=== PATIENT | female | born 1975 ===

== ENCOUNTER 2016-08-13 21:16 | Inpatient (IN) | payer OTHER ==
[2016-08-13] MEDS ORDERED: IOPAMIDOL 370 (76%) 100 ML VIAL IV ONE (21:17)
[2016-08-13] MEDS ORDERED: LACTATED RINGERS 1,000 ML ONE (22:05)
[2016-08-13] MEDS ORDERED: ONDANSETRON 4 MG/2ML 2 ML VIAL ONE (22:05)
[2016-08-13] MEDS ORDERED: HYDROMORPHONE HCL 1 MG/ML SYRINGE ONE ×2 (22:06→23:04)
[2016-08-13 22:29] LABS: ABSOLUTE NEUTROPHIL COUNT 7.3 K/mm3 (1.8-7.7); BASO % 0.4 % (0.2-1.0); HEMATOCRIT 38.7 % (37.0-47.0); HEMOGLOBIN 12.8 gm/l (12.0-16.0); IMM NEUT% 0.2 % (0-1); LYMPH # 1.7 (1.0-4.8); LYMPH % 17.3 % (15-45); MEAN CELL VOLUME 82.7 fl (81.0-99.0); MEAN CORPUSCULAR HEMOGLOBIN 27.4 pg (27.0-31.0); MEAN CORPUSCULAR HGB CONC 33.1 g/dl (33.0-37.0); MEAN PLATELET VOLUME 11.7 fl (7.4-10.4); MONO # 0.7 (0.0-0.8); MONO % 6.8 % (4-12); NEUT % 75.3 % (43-75); PLATELET COUNT 217 K/mm3 (130-400); RED CELL DISTRIBUTION WIDTH 13.8 % (11.5-14.5)
[2016-08-13 22:51] LABS: ALB/GLOB RATIO 1.2 (>1.0); ALBUMIN 4.2 gm/dL (3.5-5.7); CALCIUM 9.9 mg/dL (8.6-10.3)
[2016-08-14] MEDS ORDERED: ROCURONIUM BROMIDE 10 MG/ML DOSE IV ONE ×10 (01:27)
[2016-08-14] MEDS ORDERED: LIDOCAINE 2% (MULTI DOSE) 10 ML VIAL ONE (01:27)
[2016-08-14] MEDS ORDERED: PROPOFOL 20 ML IV ONE (01:28)
--- NOTE | 2016-08-14 01:28 | PDOC36 ---
Provider Note Note: GENERAL SURGERY H&P CC: abdominal pain HPI: 44yo F with abdominal pain. This started earlier today. It is constant but intermittently worsens. It is worse on her right side. She has had pain similar to this over the last several years, but never with this intensity. She has never had a colonoscopy. She has had some associated nausea/vomiting and subjective fevers, but denies any recent C/CP/SOB, change in bladder fx, constipation, diarrhea, unintentional weight loss, easy bleeding/bruising, or other associated symptoms. REVIEW OF SYSTEMS CONSTITUTIONAL: As per HPI. EARS, NOSE, MOUTH, THROAT: ~No sneezing or runny nose CARDIOVASCULAR: ~As per HPI. RESPIRATORY: ~As per HPI. GASTROINTESTINAL: ~As per HPI. GENITOURINARY: ~As per HPI. NEUROLOGICAL: ~No history of seizures HEMATOLOGIC: ~As per HPI. MUSCULOSKELETAL: ~No change in strength. LYMPHATICS: ~No history of splenectomy. PSYCHIATRIC: ~No change in personality or affect PMH: None PSH: x 3 Meds: None All: PCN SH: Denies tobacco and EtOH FH: No FH of cancers Physical Exam: General/Constitutional: In mild distress due to pain. Psych: A&O x 3, normal judgment and insight. Recent and remote memory intact. Mood and affect normal. Eyes: Pupils equal, no scleral icterus Ears, Nose, Mouth, Throat: gross hearing intact Neck: Supple Heart: RRR, no LE edema Lungs: Equal rise and fall of chest wall, non-labored breathing, no audible wheezes Neuro: Gross sensation intact Abdomen: Soft, ND, mild RIGHT sided abdominal pain, no guarding. Labs: Laboratory Results - last 24 hr 08/13/16 22:25 WBC 9.6 RBC 4.68 Hgb 12.8 Hct 38.7 MCV 82.7 MCH 27.4 MCHC 33.1 RDW 13.8 Plt Count 217 Neut % (Auto) 75.3 H Lymph % (Auto) 17.3 [place] % (Auto) 6.8 Baso % (Auto) 0.4 Absolute Neuts (auto) 7.3 Eosinophils % 0.0 L Sodium 139 Potassium 3.7 Chloride 106 Carbon Dioxide 20 L Anion Gap 17 H BUN 7 Creatinine 0.6 Estimated GFR 111 H BUN/Creatinine Ratio 12 Glucose 106 H Calcium 9.9 Total Bilirubin 1.3 H AST 18 ALT 12 Alkaline Phosphatase 55 Total Protein 7.7 Albumin 4.2 Globulin 3.5 Albumin/Globulin Ratio 1.2 Lipase 11 Beta HCG, Qual Negative % Immature Granulocyt 0.2 CT A/P (08/13/16): Pre-eckert read - abnormal loops of small bowel within the right abdomen demonstrating wall thickening, abnormal C-shaped configuration ad twisting of the mesentery, compatible with an internal hernia. Most of these bowel loops are decompressed, with the exception of a short segment at the inferior margin, which may reflect early closed loop obstruction. Of note, the duodenum does not cross the midline, suggesting developmental malrotation. The cecum is at the right lower quadrant. Small amount of free fluid. No free air, pneumotosis, or portal venous gas. Cholelithiasis without cholecystitis. 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 I recommend surgical exploration. The operation and expected post-operative course were discussed at length. We discussed the risks of the operation to include, but not limited to: bleeding, pain, infection, scar, damage to surrounding structures (small bowel, colon, bladder), failure to improve health, need for additional procedures (to include conversion to open and bowel resection), and the risks of anesthesia (heart attack, arrhythmia, stroke, blood clot, and ). The patient understands these risks and agrees to proceed with surgery. Will plan for diagnostic laparoscopy, possible exploratory laparotomy, and possible bowel resection now. Type and screen sent. Jose A Brewer MD General Surgeon
[2016-08-14] MEDS ORDERED: MIDAZOLAM HCL 1 MG/ML 2ML VIAL ONE (01:31)
[2016-08-14] MEDS ORDERED: FENTANYL 250 MCG/5 ML AMP ONE (01:31)
[2016-08-14] MEDS ORDERED: LACTATED RINGERS 1,000 ML ONE ×2 (01:36→04:09)
[2016-08-14] MEDS ORDERED: LIDOCAINE 1% (PRES FREE) 30 ML VIAL ONE (01:46)
[2016-08-14] MEDS ORDERED: BUPIVACAINE 0.5% (PRES FREE) 30 ML VIAL ONE (01:46)
[2016-08-14] MEDS ORDERED: CLINDAMYCIN PHOSPHATE 600 MG/4 ML VIAL ONE (01:55)
[2016-08-14] MEDS ORDERED: SODIUM CHLORIDE 0.9% 50 ML IV ONE (01:55)
[2016-08-14] MEDS ORDERED: CLINDAMYCIN 900 MG PREMIX 50 ML IV ONE (01:56)
[2016-08-14] MEDS ORDERED: ONDANSETRON 4 MG/2ML 2 ML VIAL ONE (03:20)
[2016-08-14] MEDS ORDERED: KETOROLAC TROMETHAMINE 30 MG/ML 1 ML VIAL ONE (03:21)
--- NOTE | 2016-08-14 03:53 | PCMON ---
OPERATIVE REPORT Pre-Op Diagnosis: Internal hernia Post-Op Diagnosis: Internal hernia Operation: Laparoscopic converted to open lysis of adhesions and internal hernia repair Surgeon: Maged Brewer MD Plunger Machine Operator: Linda Cheng Anesthesia: GETA Pre-Operative Antibiotics: Clindamycin 900mg Specimen Sent to Lab: None Date of Operation: 14 August 2016 Infection Classification: 1 Estimated Blood Loss: 10mL Indication for Procedure: The patient is a 44 year old female with one day of abdominal pain. CT scan demonstrates a dilated loop of bowel incarcerated within an internal hernia, and a possible congenital malrotation. Description of Findings: There were mild to moderate adhesions from the patient s prior C-sections. All bowel appeared viable. There was minimal chylous ascites present from lymphatic congestion. There were fibrous bands at the root of the duodenal mesentery creating a mesenteric defect and internal hernia. The bowel was completely reduced and the hernia was repaired. Detailed Operative Report: The patient was met in the pre-operative holding area by the operating team. All questions and concerns were addressed appropriately. The patient was taken to the operating room where general anesthesia was induced. A Downs catheter was placed. The abdomen was prepped and draped in the normal sterile fashion. ~ Local anesthetic was injected into the proposed supra-umbilical incision site. The skin was incised. The fascia was elevated and incised. Direct entry into the peritoneum was confirmed. A 12mm~balloon trocar was inserted into the abdomen. The abdomen was insufflated to a pressure of 15mm Hg, which the patient tolerated well. The laparoscope was inserted and the abdomen was inspected. There were no injuries from initial trocar placement. Two additional 5mm trocars were placed in the left lower quadrant and left upper quadrant positions. ~ There were moderate omental adhesions in the pelvis and right lower quadrant from the patients prior operations that were lysed with the Ligasure device. The colon was identified and appeared to be in appropriate anatomic position. The cecum was identified via the appendix and the small bowel was run from distal to proximal. All bowel appeared healthy and viable. There was some lymphatic congestion in an approximately 20cm segment of bowel with associated scant chylous ascites. There appeared to be a defect at the root of the duodenal mesentary that was poorly visualized laparoscopically. We converted to an open procedure. All trocars were removed. The midline incision was extended to an approximately 8cm midline incision. An Curt wound protector was placed. The small bowel was eviscerated. There were fibrous bands at the root of the duodenal mesentary with an associated mesenteric defect. These bands were dissected and lysed with electrocautery. We ensured that the entirety of the small bowel was reduced from the defect. The defect, measuring approximately 5-6cm was closed with several interrupted 3-0 silk sutures. The abdomen was thoroughly irrigated and hemostasis was ensured. The fascia was closed with running 0-looped PDS. All skin was closed with 4-0 monocryl. The midline incision was dressed with an Aquacel Ag dressing. The laparoscopic port sites were dressed with mastisol, steri-strips, and band-aids. The Downs catheter was removed. The patient was then awakened from anesthesia, extubated, and transferred to the PACU without complication. Prior to closing, all sponge and instrument counts were correct.~~Dr. Brewer was present for the entire procedure. MAGED BREWER MD
[2016-08-14] MEDS ORDERED: HYDROMORPHONE HCL 1 MG/ML SYRINGE IV PRN (04:28)
[2016-08-14] MEDS ORDERED: NALOXONE HCL 0.4 MG/ML VIAL IV PRN (04:28)
[2016-08-14] MEDS ORDERED: MORPHINE SULFATE 2 MG/ML SYRINGE IV PRN (04:28)
[2016-08-14] MEDS ORDERED: MEPERIDINE 25 MG/ML SYRINGE IV PRN (04:28)
[2016-08-14] MEDS ORDERED: PROMETHAZINE HCL 25 MG/ML VIAL IM PRN (04:28)
[2016-08-14] MEDS ORDERED: ATROPINE SULFATE 0.4 MG/1 ML VIAL IV PRN (04:28)
[2016-08-14] MEDS ORDERED: LACTATED RINGERS 1,000 ML IV SCH (04:28)
[2016-08-14] MEDS ORDERED: ONDANSETRON 4 MG/2ML 2 ML VIAL IV PRN ×2 (04:28)
[2016-08-14] MEDS ORDERED: FENTANYL 100 MCG/2 ML VIAL IV PRN (04:28)
[2016-08-14] MEDS ORDERED: LABETALOL HCL 5 MG/ML 20ML VIAL IV PRN (04:28)
[2016-08-14] MEDS ORDERED: CLINDAMYCIN 900 MG PREMIX 900 MG in Premix (D5W) 50 ml 1 EACH IV PRN (04:28)
[2016-08-14] MEDS ORDERED: HYDRALAZINE HCL 20 MG/1 ML VIAL IV PRN (04:28)
[2016-08-14 06:03] VITALS: BMI 26.4
[2016-08-14] MEDS ORDERED: PUMP TUBING ONE (06:25)
[2016-08-14] MEDS: LACTATED RINGERS 1,000 ML IV SCH ×3 (06:29→20:01)
--- NOTE | 2016-08-14 08:26 | CT ---
Exam: CT abdomen and pelvis with contrast COMPARISON: 03/20/2014 INDICATION: Right-sided abdominal pain. TECHNIQUE: CT examination of the abdomen and pelvis was obtained following the administration 100 mL Isovue-370 intravenous contrast. FINDINGS: There is an abnormal collection of collapsed small bowel bowel within the right upper quadrant which is highly concerning for an internal hernia. 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 There is some fecalization of small bowel contents within this short segment of bowel as annotated on coronal image 26 of 63 where there is abrupt transition to narrow small bowel reflecting stasis/obstruction. There is no pneumatosis or portal venous gas. Stool and gas is present within the colon although the ileum is essentially collapsed. There is a small amount of free fluid in the pelvis, within physiologic range. There is no free intraperitoneal air. Cholelithiasis. The pancreas is within normal limits. No biliary ductal dilation. Liver is unremarkable. Spleen is normal in size. There is no adrenal mass. Other than some scarring in the upper pole the left kidney, kidneys are unremarkable. Lung bases are clear. Lumbosacral transitional vertebra is incidentally noted. No worrisome osseous abnormality is identified. IMPRESSION: 1. Abnormal collection of collapsed small bowel within the right upper quadrant which is highly concerning for an internal hernia. Surgical consultation is recommended. 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 2. Cholelithiasis without evidence of cholecystitis or biliary ductal dilation. Preliminary report transmitted to the emergency department from [facility] at 0045 hours 08/14/2016.
--- NOTE | 2016-08-14 08:28 | US ---
Exam: Gallbladder ultrasound COMPARISON: CT 03/20/2014 INDICATION: Right upper quadrant pain. FINDINGS: Gallbladder ultrasound was obtained. Gallbladder is moderately distended. There is no gallbladder wall thickening or pericholecystic fluid. No gallstones are identified; tiny calcified gallstones seen on the prior CT were not visualized. There was a negative sonographic Caldera sign. Common bile duct normal at 3 mm. IMPRESSION: Negative gallbladder ultrasound. Tiny gallstones seen on the 2014 CT were not visualized. Preliminary report transmitted to the emergency department from [facility] at 2306 hours 08/13/2016.
[2016-08-14] MEDS ORDERED: SODIUM CHLORIDE 0.9% FLUSH 10 ML ONE (11:14)
[2016-08-14] MEDS: OXYCODONE/ACETAMINOPHEN 5/325 MG TABLET PO PRN (15:42)
[2016-08-15] MEDS: OXYCODONE/ACETAMINOPHEN 5/325 MG TABLET PO PRN (04:41)
[2016-08-15] MEDS: LACTATED RINGERS 1,000 ML IV SCH (07:19)
[2016-08-15 08:45] VITALS: BP 97/64
--- NOTE | 2016-08-15 10:12 | PDOC43 ---
- Subjective S: Minimal pain. Tolerated clear liquids. Ambulating. No flatus or BM yet. O: VSS, adequate UOP Physical Exam: General/Constitutional: Vitals documented above, comfortable in NAD Psych: A&O x 3, normal judgment and insight. Recent and remote memory intact. Mood and affect normal. Eyes: Pupils equal, no scleral icterus Ears, Nose, Mouth, Throat: gross hearing intact Neck: Supple Heart: RRR, no LE edema Lungs: Equal rise and fall of chest wall, non-labored breathing, no audible wheezes Neuro: Gross sensation intact Abdomen: Soft, NT/ND, no guarding. Midline incision with minimal strikethrough. Laparoscopic incisions covered with steris/band-aids that are c/d/i. A/P: 44yo F doing well POD#1 s/p laparoscopic converted to open lysis of adhesions and repair of internal hernia. Will advance to regular diet and HLIV. If tolerates regular diet, plan for d/c later today. Jose A Brewer MD General Surgeon - Objective Vital Signs Temperature 98.3 F 08/15/16 08:00 Pulse Rate 76 08/15/16 08:00 Respiratory Rate 18 08/15/16 08:00 Blood Pressure 97/64 08/15/16 08:00 O2 Saturation by Pulse Oximetry 95 08/15/16 08:00 Oxygen Delivery Method Room Air Oxygen Flow Rate 0
--- NOTE | 2016-08-15 10:22 | PDOC5 ---
ADMIT DATE: 08/14/16 DISCHARGE DATE: 08/15/16 ADMISSION DIAGNOSES: bowel obstruction PROCEDURES PERFORMED THIS HOSPITALIZATION: diagnostic converted to open lysis of adhesions and repair of an internal hernia CONSULTATIONS: general surgery HOSPITAL COURSE: The patient underwent a diagnostic converted to open lysis of adhesions and repair of an internal hernia, likely due to a congenital malrotation type process. She tolerated the procedure well. Postoperatively, her diet was slowly advanced. On the day of discharge, her pain was well controlled with oral pain medication, she was tolerating a regular diet, and ambulating without difficulty. She was discharged home on POD#1. - Objective Vital Signs Temperature 98.3 F 08/15/16 08:00 Pulse Rate 76 08/15/16 08:00 Respiratory Rate 18 08/15/16 08:00 Blood Pressure 97/64 08/15/16 08:00 O2 Saturation by Pulse Oximetry 95 08/15/16 08:00 Oxygen Delivery Method Room Air Oxygen Flow Rate 0 - Discharge Plan Forms: Work Release Form Additional Instructions: If you have any fevers, chills, nausea, vomiting, worsening pain, or other concerning symptoms, please return to the Emergency Room. Prescriptions: Naproxen [NAPROSYN 500 MG TABLET (SHF)] 500 mg PO BID #30 tablet Oxycodone HCl/Acetaminophen [PERCOCET 5/325 MG TABLET (SHF)] 1 - 2 tab PO Q4H PRN #30 tab PRN Reason: Pain Polyethylene Glycol 3350 [MIRALAX 17 G PACKET (SHF)] 17 g PO DAILY #1 bot Follow-Up: Naomi Hickey MD [Staff Physician] -
== END 2016-08-15 13:25 | disposition home or self-care (01) | DRG 337 ==
LOC: ED 21:16 → OR 08-14 00:57 → SDC 08-14 00:57 → MS 08-14 04:32 → SDC 08-15 07:32 → MS 08-15 07:33
PROVIDERS: ADMIT Surgery; ATTEND Surgery
PROC: 0WQF0ZZ Repair Abdominal Wall, Open Approach (ICD-10-PCS; principal; 2016-08-15)
PROC: 0DNS0ZZ (ICD-10-PCS; 2016-08-15)
PROC: 0WJF4ZZ Inspection of Abdominal Wall, Percutaneous Endoscopic Approach (ICD-10-PCS; 2016-08-15)
DX: K43.6 Other and unspecified ventral hernia with obstruction, without gangrene (principal); K80.20 Calculus of gallbladder without cholecystitis without obstruction

== ENCOUNTER 2016-08-19 04:51 | Emergency (ER) | payer OTHER ==
[2016-08-19] MEDS ORDERED: IOPAMIDOL 370 (76%) 100 ML VIAL IV ONE (04:52)
[2016-08-19] MEDS ORDERED: MORPHINE SULFATE 4 MG/ML SYRINGE ONE (05:14)
[2016-08-19] MEDS ORDERED: SIMETHICONE 80 MG TAB.CHEW ONE (05:14)
[2016-08-19] MEDS ORDERED: ONDANSETRON 4 MG/2ML 2 ML VIAL ONE (05:14)
[2016-08-19] MEDS ORDERED: SODIUM CHLORIDE 0.9% 1,000 ML ONE (05:14)
[2016-08-19 05:51] LABS: ABSOLUTE NEUTROPHIL COUNT 4.2 K/mm3 (1.8-7.7); BASO % 0.5 % (0.2-1.0); EOS # 0.1 (0.0-0.5); EOS % 1.2 % (0.9-2.9); HEMATOCRIT 38.1 % (37.0-47.0); HEMOGLOBIN 12.6 gm/l (12.0-16.0); IMM NEUT% 0.3 % (0-1); LYMPH # 1.1 (1.0-4.8); LYMPH % 19.1 % (15-45); MEAN CELL VOLUME 84.3 fl (81.0-99.0); MEAN CORPUSCULAR HEMOGLOBIN 27.9 pg (27.0-31.0); MEAN CORPUSCULAR HGB CONC 33.1 g/dl (33.0-37.0); MEAN PLATELET VOLUME 11.8 fl (7.4-10.4); MONO # 0.3 (0.0-0.8); MONO % 5.9 % (4-12); PLATELET COUNT 197 K/mm3 (130-400); RED CELL DISTRIBUTION WIDTH 13.9 % (11.5-14.5)
[2016-08-19 06:03] LABS: ALB/GLOB RATIO 1.2 (>1.0); ALBUMIN 3.9 gm/dL (3.5-5.7); CALCIUM 9.5 mg/dL (8.6-10.3); MAGNESIUM 1.9 mg/dL (1.9-2.7)
[2016-08-19 07:01] LABS: URINE APPEARANCE CLEAR; URINE BILIRUBIN NEGATIVE (NEGATIVE); URINE BLOOD NEGATIVE (NEGATIVE); URINE COLOR YELLOW; URINE GLUCOSE (UA) NEGATIVE (NEGATIVE); URINE LEUKOCYTE ESTERASE NEGATIVE (NEGATIVE); URINE NITRITE NEGATIVE (NEGATIVE); URINE PROTEIN TRACE (NEGATIVE); URINE UROBILINOGEN NORMAL (0-1 mg/dl)
--- NOTE | 2016-08-19 07:27 | CT ---
Exam Type: ABD/PELVIS W/ CON Date and Time: 08/19/2016 5:13 AM Clinical information: Postop abdominal pain for volvulus repair on 08/13/2016. Comparison: 08/13/2016. Procedure: Imaging device: [employer] Aquilion [address] scanner 1 mm axial images were obtained through the abdomen and pelvis. Stacked reconstructed 3, 4 and 5 mm images were photographed in the axial coronal and sagittal planes. No oral contrast was utilized for this examination. 100 ml of Isovue-370 was injected intravenously. Exam: with intravenous contrast. FINDINGS: Lung bases: Bibasilar atelectasis is present. No effusion or pneumothorax is visualized. Liver: the liver is homogeneous with no discrete abnormality visualized. No definite findings of biliary dilatation are observed. Spleen: The spleen is homogeneous and does not appear to be enlarged. Gallbladder: A few calcified gallstones are identified within the lumen of the gallbladder. No adjacent inflammatory stranding is observed. Pancreas: Normal without enlargement or evidence of adjacent inflammatory changes. Adrenal glands: Normal without enlargement or evidence of adjacent inflammatory changes. Abdominal aorta: The aorta is of normal caliber and appears to be without significant atherosclerotic disease. Kidneys: The kidneys appear to be symmetric in size with no perinephric inflammatory changes are identified. No current findings of hydronephrosis are seen. Bowel structures: The distal large bowel loops appear to be of normal caliber. There is prominent distention of the stomach and proximal duodenum extending to its transition between the superior mesenteric artery and the aorta. No dilated small bowel loops are visualized. The previous segmented region of small bowel within the central abdomen is no longer visualized status post interval surgery. There is a small amount of free fluid within the left aspect of the abdomen along the paracolic gutter with no rim-enhancing collection visualized. Appendix: Not well visualized. Bladder: Air is seen within the nondependent bladder, likely due to instrumentation. Hernia: No abdominal wall or inguinal hernia is visualized on this examination. Adenopathy: A few mildly prominent central mesenteric lymph nodes are visualized. Osseous structures: No discrete osseous abnormalities are identified. Pelvic structures: There is a small amount of free fluid within the deep pelvis. A low-attenuation structure to the left aspect of the pelvis on axial image 73 measures 3.3 cm in size and may reflect an adnexal cyst. IMPRESSION: 1. Interval surgery with the suspected internal hernia no longer visualized. 2. Prominent distention of the stomach and proximal duodenum, with a transition noted situated between the proximal aorta and superior mesenteric artery origin. 3. A small amount of free fluid within the left paracolic gutter and within the deep pelvis. 4. Cholelithiasis. 5. Nonvisualization of the appendix. 6. A suspected 3.3 cm left adnexal cyst. The findings were called to the emergency room at 0701 hours, 08/19/2016, by [facility].
== END 2016-08-19 08:51 | disposition short-term general hospital (02) ==
LOC: ED 04:51
DX: K56.60 Unspecified intestinal obstruction (principal); Z98.890 Other specified postprocedural states; Z88.0 Allergy status to penicillin